=== PATIENT | male | born 1930 | race Caucasian/White ===

== ENCOUNTER 2019-07-24 15:25 | Observation (INO) ==
--- NOTE | 2019-07-24 16:03 | DR.CP ---
HPI Time Seen Time Seen by Provider: 07/24/19 16:02 PCP Primary Care Physician: KATHE IN [place] HPI Comment HPI Comment: PATIENT IS 89YR OLD MALE IN ER WITH PRECORDIAL CHEST PAIN TIMES 3 DAYS. PAIN 7/10 PRESSURE RADIATES TO THE BACK. NTG S/L TIMES 3 HELP PAIN. NO TRAUMA, COUGH, CONGESTION OR DYSURIA. Complaint Chief Complaint Doctor Comments: CHEST PAIN Chief Complaint:: PT STATED HE HAS BEEN HAVING CHEST PAIN FOR THE LAST 3 DAYS, NITRO SL TIMES 3 WERE GIVEN AND IT HELPED SOME. Reviewed Nurses Notes Review: Yes Source History Provided: Patient and Family Member Mode of Arrival Mode of Arrival: Ambulatory Timing Onset of Chief Complaint: 07/21/19 Came on: Suddenly Pain: Present Now Duration Duration: Constant Duration: Hours and Days Location Location of Chest Pain: Left and Chest Context Cardiac Risk Factors: None PE Risk Factors: None History of: None Prehospital Care: None Quality Quality: Pressure like Severity Severity: Moderate Modifying Factors Worsens: Exertion Impoves: Rest Associated Signs and Symptoms Associated Signs and Symptoms: Shortness of Breath PMH PMH Past Medical History: No Past Surgical History: Yes Past Surgical History Comment: LEFT EAR Family History History of Family Medical Conditions: No Social History Does patient currently use any type of tobacco product: No Have you used tobacco products in the last 12 months: No Type of Tobacco Use: None Does any household member use tobacco: No Alcohol Use: None Do you use any recreational Drugs:: No Lives With: Family Lives Where: Home infectious screening In the last 2 months have you had wt loss of >10#?: NO Have you had fever, night sweats or hemotysis?: No Have you traveled outside the country in the last 6 months?: Yes Details about traveling: PT LIVED IN [facility] [place] FOR 25 YEARS, JUST RETURNED LAST SEPTEMBER Isolation: Standard ROS Review of Systems Constitutional: See HPI, Weakness and Fatigue; negative Fever Eyes: No Symptoms Reported, See HPI and Other (MACULAR DEGENERATION WITH BLINDNESS.) ENTM: No Symptoms Reported, See HPI and Hearing Loss (LEFT EAR DEAFNESS.); ne gative Ear Pain, Nose Discharge, Nose Congestion and Throat Pain Respiratoy: See HPI and Short of Breath; negative Moist Cough and Wheezing Cardiovascular: See HPI and Chest Pain; negative Edema and Palpitations Gastrointestinal/Abdominal: No Symptoms Reported and See HPI; negative Diarrhea, Nausea and Vomiting Genitourinary: No Symptoms Reported and See HPI Neurological: No Symptoms Reported, See HPI and Headache; negative Weakness and Dizziness Musculoskeletal: No Symptoms Reported and See HPI Integumentary: No Symptoms Reported and See HPI; negative Change in Color, Rash and Juandice Hematologic/Lymphatic: No Symptoms Reported and See HPI; negative Easy Bleeding and Easy Bruising Endocrine: No Symptoms Reported and See HPI; negative Increased Thirst, Increased Urine and Decreased Appetite Psychiatric: No Symptoms Reported and See HPI All Other Systems: Reviewed and Negative PE Vitals Vitals: Temperature 97.9 F Pulse Rate [Left Brachial] 80 Pulse Rate 88 Respiratory Rate 16 Blood Pressure [Left Arm] 149/67 Blood Pressure 145/63 O2 Sat by Pulse Oximetry 99 General Limitations: No Limitations General Appearance: Alert and In No Apparent Distress Head Head Exam: Normal Inspection Eyes Eye exam: Other (MACULAR DEGERATION WITH BLINDNESS.) ENT ENT Exam: Normal Exam, Normal Oropharynx and Normal External Ear Exam; negative TM's Normal Bilaterally (LEFT EAR DEAFNESS.) Chest Chest Inspection: Normal Inspection and Symmetric Chest Wall Rise; negative Tenderness Respiratory Respiratory Exam: Normal Lung Sounds Bilat; negative Accessory Muscle Use, Chest Wall Tenderness and Respiratory Distress Respiratory Exam: Bilateral: Rhonchi and Lower: Rhonchi Cardiovascular Cardiovascular Exam: Regular Rate, Normal Rhythm and Normal Heart Sounds Pulse: Normal Edema: Normal Abdominal Exam Abdominal Exam: Normal Inspection, Normal Bowel Sounds and Soft; negative Tenderness Extremities Extremities Exam: Normal Inspection Back Back Exam: Normal Inspection Neurologic Neurological Exam: Alert and Oriented X3; negative Motor Sensory Deficit Psychiatric Psychiatric Exam: Normal Affect and Normal Mood Skin Skin Exam: Warm, Dry, Intact and Normal Color MDM Differential Diagnosis Differential Diagnosis: Chest Wall Pain, CHF, Costochondritis, Gastritis, Myocardial Infarction, Pericarditis, Pleuritis, Pneumonia and Pneumothorax COURSE Treatment Treatment: SEE ORDERS. Consultation Consultation Comments: DISCUSSED PATIENT WITH DR. ROSAS. HE WILL ADMIT PATIENT. Education/Counseling Education/Counseling: Patient Educated On: Diagnosis ROR Labs Reviewed Laboratory Results Reviewed?: Yes Result Diagrams: 07/26/19 04:17 07/26/19 04:17 Laboratory: WBC 6.2 X10^3/uL (3.6-10.0) 07/24/19 16:13 RBC 5.38 X10^6/uL (4.7-6.0) 07/24/19 16:13 Hgb 14.8 g/dL (13.5-18.0) 07/24/19 16:13 Hct 44.9 % (42.0-54.0) 07/24/19 16:13 MCV 83.4 fL (80.0-100.0) 07/24/19 16:13 MCH 27.4 pg (27.0-34.0) 07/24/19 16:13 MCHC 32.9 g/dL (33.0-35.0) L 07/24/19 16:13 RDW 15.6 % (11.6-16.5) 07/24/19 16:13 Plt Count 255 X10^3/uL (150.0-450.0) 07/24/19 16:13 MPV 6.7 fL (7.4-11.0) L 07/24/19 16:13 Neut % (Auto) 57.3 % (42.0-75.0) 07/24/19 16:13 Lymph % (Auto) 30.1 % (21.0-51.0) 07/24/19 16:13 [place] % (Auto) 10.9 % (0.0-13.0) 07/24/19 16:13 Eos % (Auto) 1.0 % (0.9-2.9) 07/24/19 16:13 Baso % (Auto) 0.7 % (0.2-1.0) 07/24/19 16:13 Neut # (Auto) 3.5 x10^3/uL (2.2-4.8) 07/24/19 16:13 Lymph # (Auto) 1.9 X10^3/uL (1.3-2.9) 07/24/19 16:13 [place] # (Auto) 0.7 x10^3/uL (0.3-0.8) 07/24/19 16:13 Eos # (Auto) 0.1 x10^3/uL (0.0-0.2) 07/24/19 16:13 Baso # (Auto) 0.0 X10^3/uL (0.0-0.1) 07/24/19 16:13 Absolute Nucleated RBC 0.2 /100WBC 07/24/19 16:13 PT 13.4 SECONDS (11.8-14.3) 07/24/19 16:13 INR Target Range - 07/24/19 16:13 INR 1.06 (0.8-1.3) 07/24/19 16:13 APTT 30.3 SECONDS (22.9-36.5) 07/24/19 16:13 PTT Comment - 07/24/19 16:13 Sodium 140 mmol/L (136-145) 07/24/19 16:13 Corrected Sodium 141 mmol/L (136-145) 07/24/19 16:13 Potassium 4.0 mmol/L (3.5-5.1) 07/24/19 16:13 Chloride 103 mmol/L (98-107) 07/24/19 16:13 Carbon Dioxide 31.3 mmol/L (21-32) 07/24/19 16:13 BUN 10 mg/dL (7-18) 07/24/19 16:13 Creatinine 1.40 mg/dL (0.70-1.30) H 07/24/19 16:13 Est GFR (MDRD) Af Amer > 60 (>60) 07/24/19 16:13 Est GFR (MDRD) Non-Af 51 (>60) L 07/24/19 16:13 Glucose 131 mg/dL (65-99) H 07/24/19 16:13 Calcium 9.5 mg/dL (8.5-10.1) 07/24/19 16:13 Corrected Calcium 10.1 mg/dL (8.5-10.1) 07/24/19 16:13 Magnesium 2.0 mg/dL (1.7-2.9) 07/24/19 16:13 Total Bilirubin 0.50 mg/dL (0.2-1.0) 07/24/19 16:13 AST 21 Units/L (15-37) 07/24/19 16:13 ALT 18 Units/L (12-78) 07/24/19 16:13 Alkaline Phosphatase 71 Units/L (46-116) 07/24/19 16:13 Creatine Kinase 112 Units/L (39-308) 07/24/19 16:13 CK-MB (CK-2) 4.0 ng/mL (0-4.0) 07/24/19 16:13 CK/CKMB % Calc 3.6 % (<4) 07/24/19 16:13 Troponin I < 0.02 ng/mL (0-1.5) 07/24/19 16:13 Total Protein 7.5 g/dL (6.4-8.2) 07/24/19 16:13 Albumin 3.3 g/dL (3.4-5.0) L 07/24/19 16:13 Globulin 4.2 g/dL (2.5-4.5) 07/24/19 16:13 Albumin/Globulin Ratio 0.8 Ratio (1.1-2.1) L 07/24/19 16:13 XRAY XRAY Interpreted by: Self (NEGATIVE ACUTE FINDINGS.) XRAY Findings: REPORT NOTED AND DISCUSSED WITH PATIENT. EKG Rate: 84 Page: Normal Rhythm: NSR and PACs Block: None Hypertrophy: None ST: Normal Opioid Opioid Risk Tool Age (Ian box if 16-45): No Total: 0 Total Score Risk Category: Low Risk Copyright: [facility] predicting aberrant behaviors Diagnosis Discharge Problem: Chest pain Qualifiers: Chest pain type: precordial pain Qualified Code(s): R07.2 - Precordial pain Instructions Instructions: Fall Prevention in the Home, Adult, [id number] Nonspecific Chest Pain, Ufkh-[id number] Dyslipidemia Food Choices for Gastroesophageal Reflux Disease, Adult, [id number] Hypertension, [id number] Gastroesophageal Reflux Disease, Adult, [id number] Forms: Patient Portal
[2019-07-24] MEDS ORDERED: ASPIRIN 81 MG CHEWTAB ONE (16:23)
[2019-07-24 16:26] LABS: BASOPHILS % (AUTO) 0.7 % (0.2-1.0); EOSINOPHILS # (AUTO) 0.1 x10^3/uL (0.0-0.2); HEMATOCRIT 44.9 % (42.0-54.0); HEMOGLOBIN 14.8 g/dL (13.5-18.0); LYMPHOCYTES # (AUTO) 1.9 X10^3/uL (1.3-2.9); LYMPHOCYTES % (AUTO) 30.1 % (21.0-51.0); MEAN CORPUSCULAR HEMOGLOBIN 27.4 pg (27.0-34.0); MEAN CORPUSCULAR HGB CONC 32.9 g/dL (33.0-35.0); MEAN CORPUSCULAR VOLUME 83.4 fL (80.0-100.0); MEAN PLATELET VOLUME 6.7 fL (7.4-11.0); MONOCYTES # (AUTO) 0.7 x10^3/uL (0.3-0.8); MONOCYTES % (AUTO) 10.9 % (0.0-13.0); NEUTROPHILS # (AUTO) 3.5 x10^3/uL (2.2-4.8); NEUTROPHILS % (AUTO) 57.3 % (42.0-75.0); PLATELET COUNT 255 X10^3/uL (150.0-450.0); RED BLOOD COUNT 5.38 X10^6/uL (4.7-6.0); RED CELL DISTRIBUTION WIDTH 15.6 % (11.6-16.5); WHITE BLOOD COUNT 6.2 X10^3/uL (3.6-10.0)
[2019-07-24] MEDS: ASPIRIN 81 MG CHEWTAB PO SCH (16:27)
--- NOTE | 2019-07-24 16:45 | RAD ---
HISTORY:Chest painStudy: Single view chestComparison:NoneFindings:Lungs are hyperinflated. No infiltrate, effusion, or pneumothorax identified .Cardiac and mediastinal contours are within normal limits .The soft tissues are intact .IMPRESSION:1. No acute cardiopulmonary abnormality.Electronically signed by: CHALINO CHRISTY (Jul 24, 2019 16:44:50)
[2019-07-24 16:48] LABS: BLOOD UREA NITROGEN 10 mg/dL (7-18); CALCIUM 9.5 mg/dL (8.5-10.1); CARBON DIOXIDE 31.3 mmol/L (21-32); CHLORIDE 103 mmol/L (98-107); COR NA(FOR HYPERGLY) 141 mmol/L (136-145); SODIUM 140 mmol/L (136-145); TROPONIN I < 0.02 ng/mL (0-1.5); eGFR NON BLACK RACES 51 (>60)
[2019-07-24 16:52] LABS: ALANINE AMINOTRANSFERASE 18 Units/L (12-78); ALBUMIN 3.3 g/dL (3.4-5.0); ALKALINE PHOSPHATASE 71 Units/L (46-116); ASPARTATE AMINO TRANSFERASE 21 Units/L (15-37); CKMB % 3.6 % (<4); COR CA(FOR HYPOALB) 10.1 mg/dL (8.5-10.1); CREATINE KINASE 112 Units/L (39-308); TOTAL PROTEIN 7.5 g/dL (6.4-8.2)
[2019-07-24] MEDS ORDERED: NITROSTAT SL PRN (19:45)
[2019-07-24] MEDS: PEPCID 20 MG IV PREMIX* 20 MG/50 ML BAG IV SCH (20:50)
[2019-07-24] MEDS: NS 1000 ML 1,000 ML IV SCH (20:50)
[2019-07-24 20:55] VITALS: BMI 20.7
[2019-07-24 23:30] LABS: CKMB % 2.5 % (<4); CREATINE KINASE 113 Units/L (39-308); CREATINE KINASE MB 2.8 ng/mL (0-4.0); TROPONIN I < 0.02 ng/mL (0-1.5)
[2019-07-25 00:18] LABS: BILIRUBIN,URINE NEGATIVE (NEGATIVE); BLOOD/HEMOGLOBIN,URINE NEGATIVE (NEGATIVE); GLUCOSE, URINE NEGATIVE (NEGATIVE); KETONES,URINE NEGATIVE (NEGATIVE); LEUKOCYTE ESTERASE ,URINE NEGATIVE (NEGATIVE); NITRITES,URINE NEGATIVE (NEGATIVE); PH,URINE 6.5 (5.0 - 8.0); PROTEIN,URINE NEGATIVE (NEGATIVE); UROBILINOGEN,URINE NORMAL (NORMAL)
[2019-07-25 00:25] LABS: APPEARANCE,URINE CLEAR (CLEAR); COLOR,URINE YELLOW (YELLOW)
[2019-07-25 06:12] LABS: BASOPHILS % (AUTO) 0.5 % (0.2-1.0); EOSINOPHILS # (AUTO) 0.1 x10^3/uL (0.0-0.2); EOSINOPHILS % (AUTO) 1.6 % (0.9-2.9); HEMATOCRIT 40.4 % (42.0-54.0); HEMOGLOBIN 13.6 g/dL (13.5-18.0); LYMPHOCYTES # (AUTO) 1.9 X10^3/uL (1.3-2.9); LYMPHOCYTES % (AUTO) 32.5 % (21.0-51.0); MEAN CORPUSCULAR HEMOGLOBIN 27.6 pg (27.0-34.0); MEAN CORPUSCULAR HGB CONC 33.6 g/dL (33.0-35.0); MEAN CORPUSCULAR VOLUME 82.3 fL (80.0-100.0); MEAN PLATELET VOLUME 6.9 fL (7.4-11.0); MONOCYTES # (AUTO) 0.7 x10^3/uL (0.3-0.8); MONOCYTES % (AUTO) 11.5 % (0.0-13.0); NEUTROPHILS # (AUTO) 3.2 x10^3/uL (2.2-4.8); NEUTROPHILS % (AUTO) 53.9 % (42.0-75.0); PLATELET COUNT 215 X10^3/uL (150.0-450.0); RED BLOOD COUNT 4.91 X10^6/uL (4.7-6.0); RED CELL DISTRIBUTION WIDTH 15.4 % (11.6-16.5)
[2019-07-25 06:42] LABS: ALANINE AMINOTRANSFERASE 16 Units/L (12-78); ALBUMIN 2.8 g/dL (3.4-5.0); ALKALINE PHOSPHATASE 60 Units/L (46-116); ASPARTATE AMINO TRANSFERASE 21 Units/L (15-37); BLOOD UREA NITROGEN 9 mg/dL (7-18); CALCIUM 8.9 mg/dL (8.5-10.1); CARBON DIOXIDE 25.2 mmol/L (21-32); CHLORIDE 106 mmol/L (98-107); CHOLESTEROL 139 mg/dL (0-200); CKMB % 2.2 % (<4); COR CA(FOR HYPOALB) 9.9 mg/dL (8.5-10.1); CREATINE KINASE 127 Units/L (39-308); CREATINE KINASE MB 2.8 ng/mL (0-4.0); CREATININE 1.28 mg/dL (0.70-1.30); HDL CHOLESTEROL 23 mg/dL (40-60); MAGNESIUM 1.9 mg/dL (1.7-2.9); SODIUM 141 mmol/L (136-145); TOTAL PROTEIN 6.6 g/dL (6.4-8.2); TRIGLYCERIDES 100 mg/dL (0-150); TROPONIN I < 0.02 ng/mL (0-1.5); eGFR NON BLACK RACES 56 (>60)
[2019-07-25] MEDS ORDERED: NITROSTAT SL PRN (08:11)
[2019-07-25] MEDS ORDERED: ASPIRIN PO SCH (09:00)
[2019-07-25] MEDS: PEPCID 20 MG IV PREMIX* 20 MG/50 ML BAG IV SCH ×2 (09:51→21:38)
[2019-07-25] MEDS: NS 1000 ML 1,000 ML IV SCH ×2 (09:52→21:40)
[2019-07-25] MEDS: ASPIRIN 81 MG CHEWTAB PO SCH (09:52)
[2019-07-25 12:40] LABS: CKMB % 1.6 % (<4); CREATINE KINASE 115 Units/L (39-308); CREATINE KINASE MB 1.8 ng/mL (0-4.0); TROPONIN I < 0.02 ng/mL (0-1.5)
[2019-07-25] MEDS: LEVSIN/MAALOX/LIDOC VISC PO SCH ×2 (16:31→21:39)
--- NOTE | 2019-07-25 17:05 | DR.H&P ---
H&P - History & Physical for Day of: H&P Date: 07/24/19 - Chief Complaint Chief Complaint: CHEST PAIN - History of Present Illness History of Present Illness: PT IS 89 WM ER ADMISSION AFTER PRESENTING WITH CO CHEST PAIN. PT REPORTS HE WAS GIVEN NTG SL THAT HELPED WITH PAIN. PT DENIES ANY STENTING, ANGIOPLASTY OR BYPASS. PT STATES HE IS SEEN BY THE [facility] FOR MEDICAL CARE. PT REPORTS INCREASED GAS, BURPING. DENIES ANY N/V/D - Past Medical History Past Medical History: Angina, Arthritis, Hypertension - Past Surgical History Surgical History: Other - Social History Does patient currently use any type of tobacco product: No Have you used tobacco products in the last 12 months: No Type of Tobacco Use: None Does any household member use tobacco: No Alcohol Use: None Drug Use: None - Medications Home Medications: No Known Drug Allergies Allergy (Verified 07/24/19 20:57) CONTINUE taking the following medications nitroglycerin 0.4 mg SUBLINGUAL PRN PRN 07/24/19 [History] - Review of Systems Constitutional: No Symptoms Reported Eyes: No Symptoms Reported ENT: No Symptoms Reported Respiratory: No Symptoms Reported Cardiovascular: Chest Pain Gastrointestinal: Other (GAS) Musculoskeletal: No Symptoms Reported Skin: No Symptoms Reported Neurological: Weakness (MILD GENERALIZED WEAKNESS) - Physical Exam Vital Signs: Temperature 97.9 F Pulse Rate [Right Brachial] 74 Pulse Rate [Left Brachial] 67 Pulse Rate 88 Respiratory Rate 20 Blood Pressure [Right Arm] 146/70 Blood Pressure [Left Arm] 149/67 Blood Pressure 145/63 O2 Sat by Pulse Oximetry 95 Oriented: Normal Eyes: Normal Ear: Normal Nose: Normal Throat: Dry Respiratory: RLL Diminished, LLL Diminished Cardiovascular: Normal. negative: Edema : Normal Auscultation: Bowel Sounds: Increased Tenderness: Epigastric, Mild Skin: Decreased [place] Musculoskeletal: Normal Mood Description: Calm Speech Pattern: Clear, Appropriate - Assessment/Plan (1) Chest pain Status: Acute Plan: ADMIT, SERIAL CE , EKG. CXR ON ADMISSION. PROTONIX IV, PAIN AND NAUSEA CONTROL. FLP, VERIFY HOME MEDICATION (2) Hypertension Status: Acute (3) Hyperlipidemia Status: Acute - Allergies Allergies/Adverse Reactions: Allergies Allergy/AdvReac Type Severity Reaction Status Date / Time No Known Drug Allergies Allergy Verified 07/24/19 20:57
--- NOTE | 2019-07-25 17:10 | PCM.PROG ---
Progress Note - Progress Note for Day of Date of Exam: 07/25/19 - Subjective Subjective: PT IS 89 EM ER ADMISSION WITH CHEST PAIN. PT HAD SERIAL CE AND EKG. PT DENIES ANY PREVIOUS CARDIAC STENTING OR BYPASS. PT CE NORMAL. PT CO INCREASED GAS AND BURPING. PT STARTED ON PPI, ADDED GI COCKTAIL. PLAN TO REPEAT CE. PT DENIES ANY CHEST PAIN OR SOB SINCE ADMISSION. - Past Medical Family Social History Past Med/Fam/Surg Hx: No changes since H&P Allergies: Allergies No Known Drug Allergies Allergy (Verified 07/24/19 20:57) - Review of Systems ROS: No change since H&P - Vital Signs and I&O's Vital Signs: Temperature 97.9 F Pulse Rate [Right Brachial] 74 Pulse Rate [Left Brachial] 67 Pulse Rate 88 Respiratory Rate 20 Blood Pressure [Right Arm] 146/70 Blood Pressure [Left Arm] 149/67 Blood Pressure 145/63 O2 Sat by Pulse Oximetry 95 Intake and Output: Intake & Output 07/23/19 07/24/19 07/25/19 07/26/19 11:59 11:59 11:59 11:59 Intake Total 334 / 334 1313 / 1313 Output Total 200 / 200 125 / 125 Balance 134 / 134 1188 / 1188 - Physical Exam Oriented: Normal Eyes: Normal Ear: Normal Nose: Normal Throat: Dry Cardiovascular: Normal. negative: Edema : Normal Auscultation: Bowel Sounds: Increased Tenderness: Epigastric, Mild Skin: Decreased [place]urgur Musculoskeletal: Normal Mood Description: Calm Speech Pattern: Clear, Appropriate - Laboratory and Diagnostics Result Diagrams: 07/25/19 05:18 07/25/19 05:18 Labs: Laboratory WBC 6.0 X10^3/uL (3.6-10.0) 07/25/19 05:18 RBC 4.91 X10^6/uL (4.7-6.0) 07/25/19 05:18 Hgb 13.6 g/dL (13.5-18.0) 07/25/19 05:18 Hct 40.4 % (42.0-54.0) L 07/25/19 05:18 MCV 82.3 fL (80.0-100.0) 07/25/19 05:18 MCH 27.6 pg (27.0-34.0) 07/25/19 05:18 MCHC 33.6 g/dL (33.0-35.0) 07/25/19 05:18 RDW 15.4 % (11.6-16.5) 07/25/19 05:18 Plt Count 215 X10^3/uL (150.0-450.0) 07/25/19 05:18 MPV 6.9 fL (7.4-11.0) L 07/25/19 05:18 Neut % (Auto) 53.9 % (42.0-75.0) 07/25/19 05:18 Lymph % (Auto) 32.5 % (21.0-51.0) 07/25/19 05:18 [place] % (Auto) 11.5 % (0.0-13.0) 07/25/19 05:18 Eos % (Auto) 1.6 % (0.9-2.9) 07/25/19 05:18 Baso % (Auto) 0.5 % (0.2-1.0) 07/25/19 05:18 Neut # (Auto) 3.2 x10^3/uL (2.2-4.8) 07/25/19 05:18 Lymph # (Auto) 1.9 X10^3/uL (1.3-2.9) 07/25/19 05:18 [place] # (Auto) 0.7 x10^3/uL (0.3-0.8) 07/25/19 05:18 Eos # (Auto) 0.1 x10^3/uL (0.0-0.2) 07/25/19 05:18 Baso # (Auto) 0.0 X10^3/uL (0.0-0.1) 07/25/19 05:18 Absolute Nucleated RBC 0.1 /100WBC 07/25/19 05:18 PT 13.4 SECONDS (11.8-14.3) 07/24/19 16:13 INR Target Range - 07/24/19 16:13 INR 1.06 (0.8-1.3) 07/24/19 16:13 APTT 30.3 SECONDS (22.9-36.5) 07/24/19 16:13 PTT Comment - 07/24/19 16:13 Sodium 141 mmol/L (136-145) 07/25/19 05:18 Corrected Sodium TNP 07/25/19 05:18 Potassium 3.8 mmol/L (3.5-5.1) 07/25/19 05:18 Chloride 106 mmol/L (98-107) 07/25/19 05:18 Carbon Dioxide 25.2 mmol/L (21-32) 07/25/19 05:18 BUN 9 mg/dL (7-18) 07/25/19 05:18 Creatinine 1.28 mg/dL (0.70-1.30) 07/25/19 05:18 Est GFR (MDRD) Af Amer > 60 (>60) 07/25/19 05:18 Est GFR (MDRD) Non-Af 56 (>60) L 07/25/19 05:18 Glucose 97 mg/dL (65-99) 07/25/19 05:18 Calcium 8.9 mg/dL (8.5-10.1) 07/25/19 05:18 Corrected Calcium 9.9 mg/dL (8.5-10.1) 07/25/19 05:18 Magnesium 1.9 mg/dL (1.7-2.9) 07/25/19 05:18 Total Bilirubin 0.50 mg/dL (0.2-1.0) 07/25/19 05:18 AST 21 Units/L (15-37) 07/25/19 05:18 ALT 16 Units/L (12-78) 07/25/19 05:18 Alkaline Phosphatase 60 Units/L (46-116) 07/25/19 05:18 Creatine Kinase 115 Units/L (39-308) 07/25/19 12:07 CK-MB (CK-2) 1.8 ng/mL (0-4.0) 07/25/19 12:07 CK/CKMB % Calc 1.6 % (<4) 07/25/19 12:07 Troponin I < 0.02 ng/mL (0-1.5) 07/25/19 12:07 Total Protein 6.6 g/dL (6.4-8.2) 07/25/19 05:18 Albumin 2.8 g/dL (3.4-5.0) L 07/25/19 05:18 Globulin 3.8 g/dL (2.5-4.5) 07/25/19 05:18 Albumin/Globulin Ratio 0.7 Ratio (1.1-2.1) L 07/25/19 05:18 Triglycerides 100 mg/dL (0-150) 07/25/19 05:18 Cholesterol 139 mg/dL (0-200) 07/25/19 05:18 LDL Cholesterol, Calc 96 mg/dL (0-100) 07/25/19 05:18 HDL Cholesterol 23 mg/dL (40-60) L 07/25/19 05:18 Cholesterol/HDL Ratio 6.0 (0.0-5.0) H 07/25/19 05:18 Specimen Type Clean catch urine 07/24/19 23:59 Urine Color Yellow (YELLOW) 07/24/19 23:59 Urine Appearance Clear (CLEAR) 07/24/19 23:59 Urine pH 6.5 (5.0 - 8.0) 07/24/19 23:59 Ur Specific [place] 1.015 (1.000-1.030) 07/24/19 23:59 Urine Protein Negative (NEGATIVE) 07/24/19 23:59 Urine Glucose (UA) Negative (NEGATIVE) 07/24/19 23:59 Urine Ketones Negative (NEGATIVE) 07/24/19 23:59 Urine Occult Blood Negative (NEGATIVE) 07/24/19 23:59 Urine Nitrite Negative (NEGATIVE) 07/24/19 23:59 Urine Bilirubin Negative (NEGATIVE) 07/24/19 23:59 Urine Urobilinogen Normal (NORMAL) 07/24/19 23:59 Ur Leukocyte Esterase Negative (NEGATIVE) 07/24/19 23:59 - Plan (1) Chest pain Status: Acute Plan: SERIAL CE , EKG. CXR ON ADMISSION. PROTONIX IV, PAIN AND NAUSEA CONTROL. FLP, VERIFY HOME MEDICATION (2) Hypertension Status: Acute (3) Hyperlipidemia Status: Acute (4) GERD (gastroesophageal reflux disease) Status: Acute
[2019-07-26 05:30] LABS: BASOPHILS % (AUTO) 0.4 % (0.2-1.0); EOSINOPHILS # (AUTO) 0.1 x10^3/uL (0.0-0.2); EOSINOPHILS % (AUTO) 0.9 % (0.9-2.9); HEMATOCRIT 40.9 % (42.0-54.0); HEMOGLOBIN 13.6 g/dL (13.5-18.0); LYMPHOCYTES # (AUTO) 1.9 X10^3/uL (1.3-2.9); LYMPHOCYTES % (AUTO) 30.2 % (21.0-51.0); MEAN CORPUSCULAR HEMOGLOBIN 27.6 pg (27.0-34.0); MEAN CORPUSCULAR HGB CONC 33.2 g/dL (33.0-35.0); MEAN CORPUSCULAR VOLUME 83.1 fL (80.0-100.0); MEAN PLATELET VOLUME 7.1 fL (7.4-11.0); MONOCYTES # (AUTO) 0.8 x10^3/uL (0.3-0.8); MONOCYTES % (AUTO) 12.4 % (0.0-13.0); NEUTROPHILS # (AUTO) 3.5 x10^3/uL (2.2-4.8); NEUTROPHILS % (AUTO) 56.1 % (42.0-75.0); PLATELET COUNT 238 X10^3/uL (150.0-450.0); RED BLOOD COUNT 4.93 X10^6/uL (4.7-6.0); RED CELL DISTRIBUTION WIDTH 15.5 % (11.6-16.5); WHITE BLOOD COUNT 6.2 X10^3/uL (3.6-10.0)
[2019-07-26 05:39] LABS: ALANINE AMINOTRANSFERASE 15 Units/L (12-78); ALBUMIN 2.8 g/dL (3.4-5.0); ALKALINE PHOSPHATASE 62 Units/L (46-116); ASPARTATE AMINO TRANSFERASE 16 Units/L (15-37); BLOOD UREA NITROGEN 9 mg/dL (7-18); CALCIUM 8.5 mg/dL (8.5-10.1); CHLORIDE 108 mmol/L (98-107); COR CA(FOR HYPOALB) 9.5 mg/dL (8.5-10.1); CREATININE 1.26 mg/dL (0.70-1.30); SODIUM 141 mmol/L (136-145); TOTAL PROTEIN 6.4 g/dL (6.4-8.2); eGFR NON BLACK RACES 57 (>60)
[2019-07-26] MEDS: NS 1000 ML 1,000 ML IV SCH (09:40)
[2019-07-26] MEDS: PEPCID 20 MG IV PREMIX* 20 MG/50 ML BAG IV SCH (09:41)
[2019-07-26] MEDS: ASPIRIN 81 MG CHEWTAB PO SCH (09:41)
[2019-07-26] MEDS: LEVSIN/MAALOX/LIDOC VISC PO SCH (09:41)
[2019-07-26 12:03] VITALS: BP 126/67
== END 2019-07-26 14:45 | disposition home or self-care (01) ==
LOC: MED/SURG 15:41 → ER 15:41 → MED/SURG 19:18
PROVIDERS: ADMIT Internal Medicine; ATTEND Internal Medicine
CPT/HCPCS: 36415; 71010; 71045; 80053; 80061; 81003; 82550; 82553; 83735; 84484; 85025; 85610; 85730; 93005; 94760; 96360; 96361; 96365; 96374; 97161; 99284; A4222; S0028; G0378; J7030

== ENCOUNTER 2020-05-15 13:45 | Observation (INO) ==
[2020-05-15 13:49] VITALS: BMI 19.3
--- NOTE | 2020-05-15 14:09 | DR.GENAD ---
HPI Time Seen Time Seen by Provider: 05/15/20 14:05 PCP Primary Care Physician: KATHE Complaint/Symptoms Chief Complaint:: DAUGHTER STATES PT. HAS HAD A DRY COUGH AND A NON EXISTENT APPETITE FOR A FEW WEEKS. SHE STATES PT'S MOBILITY HAS DECREASED AND ENERGY LEVEL. PT. C/O SHORTNESS OF BREATH. DAUGHTER STATES PT'S B/P AT HOME [employer]PER[employer] WAS LOW. SHE SAYS THAT HE SOMETIMES SEEMS CONFUSED. COVID-19 Coronavirus risk:travel/contact w/high risk person: No Has patient experienced Coronavirus symptoms: Yes Coronavirus symptoms experienced: Coughing and Shortness of Breath Source History Provided: Patient and Family Member Mode of Arrival Mode of Arrival: Wheelchair Timing Onset of Chief Complaint: 05/01/20 PMH PMH Past Medical History: No Past Medical History: Angina, Arthritis and Hypertension Past Surgical History: Yes Surgical History: Other Past Surgical History Comment: LEFT EAR Family History History of Family Medical Conditions: No Social History Does patient currently use any type of tobacco product: No Have you used tobacco products in the last 12 months: No Type of Tobacco Use: Cigarettes Does any household member use tobacco: No Alcohol Use: None Do you use any recreational Drugs:: No Lives With: Family Lives Where: Home Travel Risk Coronavirus risk:travel/contact w/high risk person: No Has patient experienced Coronavirus symptoms: Yes Coronavirus symptoms experienced: Coughing and Shortness of Breath Infectious screening In the last 2 months have you had wt loss of >10#?: NO Have you had fever, night sweats or hemotysis?: No Have you traveled outside the country in the last 6 months?: No Isolation: Droplet ROS Review of Systems Constitutional: No Symptoms Reported and See HPI Eyes: No Symptoms Reported and See HPI ENTM: No Symptoms Reported and See HPI Respiratoy: No Symptoms Reported and See HPI Cardiovascular: No Symptoms Reported and See HPI Gastrointestinal/Abdominal: No Symptoms Reported and See HPI Genitourinary: No Symptoms Reported and See HPI Neurological: No Symptoms Reported and See HPI Musculoskeletal: No Symptoms Reported and See HPI Integumentary: No Symptoms Reported and See HPI Hematologic/Lymphatic: No Symptoms Reported and See HPI Endocrine: No Symptoms Reported and See HPI Psychiatric: No Symptoms Reported and See HPI All Other Systems: Reviewed and Negative PE Vital Signs Vitals: Temperature 98.0 F Pulse Rate 90 Respiratory Rate 22 Blood Pressure [Right Arm] 126/67 Blood Pressure 130/56 O2 Sat by Pulse Oximetry 96 General Limitations: No Limitations General Appearance: Alert and In No Apparent Distress Head Head Exam: Normal Inspection Eyes Eye exam: Normal Appearance ENT ENT Exam: Normal Exam External Ear Exam: Normal External Inspection TM/Canal Exam: Bilateral: Normal Nose Exam: Normal Nose Exam Mouth Exam: Normal Inspection Throat Exam: Normal Inspection Neck Neck Exam: Normal Inspection Chest Chest Inspection: Normal Inspection Respiratory Respiratory Exam: Normal Lung Sounds Bilat Respiratory Exam: Bilateral: Clear to Auscultation Cardiovascular Cardiovascular Exam: Regular Rate and Normal Rhythm Abdominal Exam Abdominal Exam: Normal Inspection, Normal Bowel Sounds and Soft Extremities Extremities Exam: Normal Inspection Back Back Exam: Normal Inspection Neurologic Neurological Exam: Alert and Oriented X3 Psychiatric Psychiatric Exam: Normal Affect and Normal Mood Skin Skin Exam: Warm, Dry, Intact and Normal Color COURSE Treatment Treatment: SEE ORDERS. ROR Labs Reviewed Laboratory Results Reviewed?: Yes Result Diagrams: 05/15/20 14:23 05/15/20 14:23 Laboratory: WBC 5.5 X10^3/uL (3.6-10.0) 05/15/20 14:23 RBC 4.89 X10^6/uL (4.7-6.0) 05/15/20 14:23 Hgb 12.9 g/dL (13.5-18.0) L 05/15/20 14:23 Hct 39.8 % (42.0-54.0) L 05/15/20 14:23 MCV 81.4 fL (80.0-100.0) 05/15/20 14:23 MCH 26.4 pg (27.0-34.0) L 05/15/20 14:23 MCHC 32.5 g/dL (33.0-35.0) L 05/15/20 14:23 RDW 15.8 % (11.6-16.5) 05/15/20 14:23 Plt Count 261 X10^3/uL (150.0-450.0) 05/15/20 14:23 MPV 7.0 fL (7.4-11.0) L 05/15/20 14:23 Neut % (Auto) 58.7 % (42.0-75.0) 05/15/20 14:23 Lymph % (Auto) 24.8 % (21.0-51.0) 05/15/20 14:23 [place] % (Auto) 15.2 % (0.0-13.0) H 05/15/20 14:23 Eos % (Auto) 0.8 % (0.9-2.9) L 05/15/20 14:23 Baso % (Auto) 0.5 % (0.2-1.0) 05/15/20 14:23 Neut # (Auto) 3.2 x10^3/uL (2.2-4.8) 05/15/20 14:23 Lymph # (Auto) 1.4 X10^3/uL (1.3-2.9) 05/15/20 14:23 [place] # (Auto) 0.8 x10^3/uL (0.3-0.8) 05/15/20 14:23 Eos # (Auto) 0.0 x10^3/uL (0.0-0.2) 05/15/20 14:23 Baso # (Auto) 0.0 X10^3/uL (0.0-0.1) 05/15/20 14:23 Absolute Nucleated RBC 0.0 /100WBC 05/15/20 14:23 Sodium 136 mmol/L (136-145) 05/15/20 14:23 Corrected Sodium TNP 05/15/20 14:23 Potassium 4.1 mmol/L (3.5-5.1) 05/15/20 14:23 Chloride 100 mmol/L (98-107) 05/15/20 14:23 Carbon Dioxide 29.6 mmol/L (21-32) 05/15/20 14:23 BUN 15 mg/dL (7-18) 05/15/20 14:23 Creatinine 1.48 mg/dL (0.70-1.30) H 05/15/20 14:23 Est GFR (MDRD) Af Amer 58 (>60) L 05/15/20 14:23 Est GFR (MDRD) Non-Af 48 (>60) L 05/15/20 14:23 Glucose 99 mg/dL (65-99) 05/15/20 14:23 Calcium 10.1 mg/dL (8.5-10.1) 05/15/20 14:23 Corrected Calcium 11.1 mg/dL (8.5-10.1) H 05/15/20 14:23 Total Bilirubin 0.40 mg/dL (0.2-1.0) 05/15/20 14:23 AST 24 Units/L (15-37) 05/15/20 14:23 ALT 11 Units/L (12-78) L 05/15/20 14:23 Alkaline Phosphatase 65 Units/L (46-116) 05/15/20 14:23 Creatine Kinase 28 Units/L (39-308) L 05/15/20 14:23 CK-MB (CK-2) < 1.0 ng/mL (0-4.0) 05/15/20 14:23 CK/CKMB % Calc 3.6 % (<4) 05/15/20 14:23 Troponin I < 0.02 ng/mL (0-1.5) 05/15/20 14:23 Total Protein 7.2 g/dL (6.4-8.2) 05/15/20 14:23 Albumin 2.7 g/dL (3.4-5.0) L 05/15/20 14:23 Globulin 4.5 g/dL (2.5-4.5) 05/15/20 14:23 Albumin/Globulin Ratio 0.6 Ratio (1.1-2.1) L 05/15/20 14:23 Specimen Type Clean catch urine 05/15/20 14:16 Urine Color Yellow (YELLOW) 05/15/20 14:16 Urine Appearance Slightly hazy (CLEAR) 05/15/20 14:16 Urine pH 6.5 (5.0 - 8.0) 05/15/20 14:16 Ur Specific [place] 1.015 (1.000-1.030) 05/15/20 14:16 Urine Protein 1+ (NEGATIVE) 05/15/20 14:16 Urine Glucose (UA) Negative (NEGATIVE) 05/15/20 14:16 Urine Ketones Negative (NEGATIVE) 05/15/20 14:16 Urine Occult Blood 1+ (NEGATIVE) 05/15/20 14:16 Urine Nitrite Negative (NEGATIVE) 05/15/20 14:16 Urine Bilirubin Negative (NEGATIVE) 05/15/20 14:16 Urine Urobilinogen 1+ (NORMAL) 05/15/20 14:16 Ur Leukocyte Esterase 1+ (NEGATIVE) 05/15/20 14:16 Urine RBC 3-5 /HPF (0-3) A 05/15/20 14:16 Urine WBC 0-2 /HPF (0-5) 05/15/20 14:16 Ur Squamous Epith Cells Rare /HPF (NEGATIVE) 05/15/20 14:16 Calcium Oxalate Crystal Few /HPF (NEGATIVE) 05/15/20 14:16 Amorphous Sediment 1+ /HPF (NEGATIVE) 05/15/20 14:16 Urine Bacteria 1+ /HPF (NEGATIVE) 05/15/20 14:16 Ur Culture Indicated? No/not indicated 05/15/20 14:16 SARS-CoV-2 (PCR) Negative (NEGATIVE) 05/15/20 16:26 XRAY XRAY Interpreted by: Radiologist (REPORT NOTED AND DISCUSSED WITH PATIENT.) and Self Opioid Opioid Risk Tool Age (Ian box if 16-45): No History of Preadolescent Sexual Abuse: No Total: 0 Total Score Risk Category: Low Risk Copyright: [facility] predicting aberrant behaviors Diagnosis Discharge Problem: Ataxia, SOB (shortness of breath), Bronchitis, Generalized weakness AMS (altered mental status) Qualifiers: Altered mental status type: unspecified Qualified Code(s): R41.82 - Altered mental status, unspecified Instructions Forms: Precautions for COVID19 Patient Portal Social Distancing
[2020-05-15 14:33] LABS: BILIRUBIN,URINE NEGATIVE (NEGATIVE); BLOOD/HEMOGLOBIN,URINE 1+ (NEGATIVE); GLUCOSE, URINE NEGATIVE (NEGATIVE); KETONES,URINE NEGATIVE (NEGATIVE); LEUKOCYTE ESTERASE ,URINE 1+ (NEGATIVE); NITRITES,URINE NEGATIVE (NEGATIVE); PH,URINE 6.5 (5.0 - 8.0); PROTEIN,URINE 1+ (NEGATIVE); UROBILINOGEN,URINE 1+ (NORMAL)
[2020-05-15 14:33] LABS: BASOPHILS % (AUTO) 0.5 % (0.2-1.0); EOSINOPHILS % (AUTO) 0.8 % (0.9-2.9); HEMATOCRIT 39.8 % (42.0-54.0); HEMOGLOBIN 12.9 g/dL (13.5-18.0); LYMPHOCYTES # (AUTO) 1.4 X10^3/uL (1.3-2.9); LYMPHOCYTES % (AUTO) 24.8 % (21.0-51.0); MEAN CORPUSCULAR HEMOGLOBIN 26.4 pg (27.0-34.0); MEAN CORPUSCULAR HGB CONC 32.5 g/dL (33.0-35.0); MEAN CORPUSCULAR VOLUME 81.4 fL (80.0-100.0); MONOCYTES # (AUTO) 0.8 x10^3/uL (0.3-0.8); MONOCYTES % (AUTO) 15.2 % (0.0-13.0); NEUTROPHILS # (AUTO) 3.2 x10^3/uL (2.2-4.8); NEUTROPHILS % (AUTO) 58.7 % (42.0-75.0); PLATELET COUNT 261 X10^3/uL (150.0-450.0); RED BLOOD COUNT 4.89 X10^6/uL (4.7-6.0); RED CELL DISTRIBUTION WIDTH 15.8 % (11.6-16.5); WHITE BLOOD COUNT 5.5 X10^3/uL (3.6-10.0)
[2020-05-15 14:46] LABS: AMORPHOUS SEDIMENT,UR 1+ /HPF (NEGATIVE); APPEARANCE,URINE SLIGHTLY HAZY (CLEAR); BACTERIA,URINE 1+ /HPF (NEGATIVE); CALCIUM OXALATE CRYSTALS,UR FEW /HPF (NEGATIVE); COLOR,URINE YELLOW (YELLOW); SQUAMOUS EPITHELIAL CELL,UR RARE /HPF (NEGATIVE)
--- NOTE | 2020-05-15 14:46 | RAD ---
HISTORYSOB, COUGHSTUDYCHEST x-ray, 1 VIEWCOMPARISONX-ray 07/24/2019FINDINGSLungs are hyperinflated consistent with COPD. Persistent left retrocardiac opacity is seen which may be due to atelectasis. Heart is normal in size. Tiny left pleural effusion is not excluded. No pneumothorax is seen.IMPRESSIONProbable COPD.Probable persistent atelectasis at the left lung base.Electronically signed by: Gurdeep Guo (May 15, 2020 14:44:05)
--- NOTE | 2020-05-15 14:47 | CT ---
HISTORYAMS, DECREASED MOTILITYSTUDYBRAIN W/O CONCOMPARISONNone.TECHNIQUEMultiple axial images of the head were performed from the skullbase to the vertex using standard departmental protocol. Sagittal and coronal reformatted images were performed. Dose reduction techniques including Automated Exposure Control (AEC) and adjustment of mA and kV were utilized.FINDINGSThere is mild brain volume loss. The lateral ventricles and basilar cisterns are patent. There is left basal ganglia chronic appearing infarct with ex vacuo dilatation of the adjacent left lateral ventricle. Chronic right basal ganglia lacunar infarct. Mild low attenuation change in the subcortical and deep supratentorial white matter. Left mastoid air cell fluid with likely partial mastoidectomy. The right mastoid air cells and paranasal sinuses appear clear.IMPRESSIONNo acute intracranial abnormality. 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 Postsurgical change to the left temporal bone.Electronically signed by: Rolando Gann (May 15, 2020 14:45:40)
[2020-05-15 14:48] LABS: BLOOD UREA NITROGEN 15 mg/dL (7-18); CALCIUM 10.1 mg/dL (8.5-10.1); CARBON DIOXIDE 29.6 mmol/L (21-32); CHLORIDE 100 mmol/L (98-107); CREATININE 1.48 mg/dL (0.70-1.30); SODIUM 136 mmol/L (136-145); TROPONIN I < 0.02 ng/mL (0-1.5); eGFR NON BLACK RACES 48 (>60)
[2020-05-15 14:53] LABS: ALANINE AMINOTRANSFERASE 11 Units/L (12-78); ALBUMIN 2.7 g/dL (3.4-5.0); ALKALINE PHOSPHATASE 65 Units/L (46-116); ASPARTATE AMINO TRANSFERASE 24 Units/L (15-37); CKMB % 3.6 % (<4); COR CA(FOR HYPOALB) 11.1 mg/dL (8.5-10.1); CREATINE KINASE 28 Units/L (39-308); CREATINE KINASE MB < 1.0 ng/mL (0-4.0); TOTAL PROTEIN 7.2 g/dL (6.4-8.2)
--- NOTE | 2020-05-15 16:50 | MRI ---
HISTORYINTERMITTENT CONFUSION, UNSTEADY GAITSTUDYMRI brain without IV contrastCOMPARISONCT from same dayTECHNIQUEMultiplanar multi-sequence MRI of the brain was obtained without administration of IV contrast.FINDINGSMotion limits the study. The cerebellar tonsils are normally positioned. Pituitary gland is normal in size. [Prominent diffuse volume loss is seen in the brain with compensatory enlargement of the ventricular system.]No areas of restricted diffusion. 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 Moderate chronic small vessel ischemic changes are seen in the periventricular white matter, also. [No evidence of intracranial hemorrhage.]Paranasal sinuses appear clear but there is mild fluid in the left mastoid air cells.IMPRESSIONOld ischemic changes are seen with prominent diffuse volume loss in the brain. No evidence of recent CVA.Electronically signed by: Gurdeep Guo (May 15, 2020 16:48:24)
[2020-05-15] MEDS ORDERED: ROCEPHIN VIAL 1 GRAM 1 G in NS 100 ML IV + SPIKE MINIBAG* 100 ML IV ONE (17:16)
[2020-05-15] MEDS ORDERED: NS 1000 ML 1,000 ML ONE (17:34)
[2020-05-15] MEDS ORDERED: ROCEPHIN 1 GRAM IV PREMIX 1 G/50 ML IV.SOLN. IV ONE (17:34)
[2020-05-15] MEDS: NS 1000 ML 1,000 ML IV SCH (17:42)
[2020-05-15] MEDS: ROCEPHIN VIAL 1 GRAM 0.75 G in NS 50 ML IV 50 ML IV SCH (18:33)
[2020-05-15] MEDS ORDERED: COLACE CAP 100 MG PO PRN (20:43)
[2020-05-15] MEDS ORDERED: COLACE CAP 100 MG PO ONE (20:47)
[2020-05-15 20:49] LABS: CKMB % 2.9 % (<4); CREATINE KINASE 34 Units/L (39-308); CREATINE KINASE MB < 1.0 ng/mL (0-4.0); TROPONIN I < 0.02 ng/mL (0-1.5)
[2020-05-16 02:57] LABS: CKMB % 2.3 % (<4); CREATINE KINASE 44 Units/L (39-308); CREATINE KINASE MB < 1.0 ng/mL (0-4.0); TROPONIN I < 0.02 ng/mL (0-1.5)
[2020-05-16 04:15] VITALS: BP 110/61
[2020-05-16 05:26] LABS: BASOPHILS % (AUTO) 0.4 % (0.2-1.0); EOSINOPHILS % (AUTO) 0.7 % (0.9-2.9); HEMATOCRIT 34.8 % (42.0-54.0); HEMOGLOBIN 11.4 g/dL (13.5-18.0); LYMPHOCYTES # (AUTO) 1.3 X10^3/uL (1.3-2.9); LYMPHOCYTES % (AUTO) 24.6 % (21.0-51.0); MEAN CORPUSCULAR HEMOGLOBIN 26.6 pg (27.0-34.0); MEAN CORPUSCULAR HGB CONC 32.8 g/dL (33.0-35.0); MEAN CORPUSCULAR VOLUME 81.1 fL (80.0-100.0); MEAN PLATELET VOLUME 7.5 fL (7.4-11.0); MONOCYTES # (AUTO) 0.8 x10^3/uL (0.3-0.8); MONOCYTES % (AUTO) 15.8 % (0.0-13.0); NEUTROPHILS % (AUTO) 58.5 % (42.0-75.0); PLATELET COUNT 235 X10^3/uL (150.0-450.0); RED BLOOD COUNT 4.29 X10^6/uL (4.7-6.0); WHITE BLOOD COUNT 5.2 X10^3/uL (3.6-10.0)
[2020-05-16 05:27] LABS: ALANINE AMINOTRANSFERASE 6 Units/L (12-78); ALBUMIN 2.4 g/dL (3.4-5.0); ALKALINE PHOSPHATASE 55 Units/L (46-116); ASPARTATE AMINO TRANSFERASE 20 Units/L (15-37); BLOOD UREA NITROGEN 17 mg/dL (7-18); CALCIUM 9.7 mg/dL (8.5-10.1); CARBON DIOXIDE 29.1 mmol/L (21-32); CHLORIDE 101 mmol/L (98-107); CHOL/HDL RATIO 5.5 (0.0-5.0); CHOLESTEROL 127 mg/dL (0-200); CREATININE 1.35 mg/dL (0.70-1.30); HDL CHOLESTEROL 23 mg/dL (40-60); SODIUM 135 mmol/L (136-145); TOTAL PROTEIN 6.5 g/dL (6.4-8.2); TRIGLYCERIDES 83 mg/dL (0-150); eGFR NON BLACK RACES 53 (>60)
[2020-05-16] MEDS ORDERED: ASPIRIN 81 MG CHEWTAB PO SCH (08:00)
--- NOTE | 2020-05-16 08:08 | DR.SSS ---
SHORT STAY SUMMARY Admission Date Date of Admission: 05/15/20 Discharge Date Discharge Date: 05/16/20 Admission Diagnoses Admission Diagnoses: Generalized Weakness Confusion Cough Discharge Diagnoses Discharge Diagnoses: Generalized Weakness COPD Chief Complaint Chief Complaint: Weakness, Confusion Cough History of Present Illness History of Present Illness: Pt is a 89 y/o m [facility] by [facility] presenting with daughter who had concerns of him being weak with some confusion. She also noticed he had a dry cough and decreased appetite. Past Medical History Past Medical History: Angina, Arthritis and Hypertension Past Surgical History Surgical History: Unknown Allergies Allergies Allergy/AdvReac Type Severity Reaction Status Date / Time No Known Drug Allergies Allergy Verified 05/15/20 13:47 Medications Home Medications: No Known Drug Allergies Allergy (Verified 05/15/20 13:47) New Prescriptions mirtazapine 7.5 mg PO QHS 30 Days #30 tab 05/16/20 [Rx] prednisone 20 mg PO DAILY 5 Days #5 tab 05/16/20 [Rx] Social History Does patient currently use any type of tobacco product: No Have you used tobacco products in the last 12 months: No Type of Tobacco Use: None Does any household member use tobacco: No Alcohol Use: None Drug Use: None Review of Systems Constitutional: Weakness; denies Fever and Chills Eyes: No Symptoms Reported ENT: No Symptoms Reported Respiratory: Cough Cardiovascular: No Symptoms Reported Gastrointestinal: No Symptoms Reported Genitourinary: No Symptoms Reported Musculoskeletal: No Symptoms Reported Skin: No Symptoms Reported Neurological: Confusion Physical Exam Vital Signs: Last Vital Signs Temp 98.3 F 05/16/20 04:00 Pulse 68 05/16/20 04:00 Resp 20 05/16/20 04:00 BP 110/61 05/16/20 04:00 Pulse Ox 99 05/16/20 04:00 Oriented: Other Eyes: Normal Ear: Normal Nose: Normal Throat: Normal Respiratory: Diminished Throughout Cardiovascular: Normal : Normal Auscultation: Bowel Sounds: Normal Palpation: Normal Tenderness: Normal Skin: Normal Musculoskeletal: Normal Psychiatric: Normal Mood Description: Calm Speech Pattern: Clear Labs Labs: Laboratory Last Values WBC 5.2 X10^3/uL (3.6-10.0) 05/16/20 04:05 RBC 4.29 X10^6/uL (4.7-6.0) L 05/16/20 04:05 Hgb 11.4 g/dL (13.5-18.0) L 05/16/20 04:05 Hct 34.8 % (42.0-54.0) L 05/16/20 04:05 MCV 81.1 fL (80.0-100.0) 05/16/20 04:05 MCH 26.6 pg (27.0-34.0) L 05/16/20 04:05 MCHC 32.8 g/dL (33.0-35.0) L 05/16/20 04:05 RDW 16.0 % (11.6-16.5) 05/16/20 04:05 Plt Count 235 X10^3/uL (150.0-450.0) 05/16/20 04:05 MPV 7.5 fL (7.4-11.0) 05/16/20 04:05 Neut % (Auto) 58.5 % (42.0-75.0) 05/16/20 04:05 Lymph % (Auto) 24.6 % (21.0-51.0) 05/16/20 04:05 O[place]Brien % (Auto) 15.8 % (0.0-13.0) H 05/16/20 04:05 Eos % (Auto) 0.7 % (0.9-2.9) L 05/16/20 04:05 Baso % (Auto) 0.4 % (0.2-1.0) 05/16/20 04:05 Neut # (Auto) 3.0 x10^3/uL (2.2-4.8) 05/16/20 04:05 Lymph # (Auto) 1.3 X10^3/uL (1.3-2.9) 05/16/20 04:05 [place] # (Auto) 0.8 x10^3/uL (0.3-0.8) 05/16/20 04:05 Eos # (Auto) 0.0 x10^3/uL (0.0-0.2) 05/16/20 04:05 Baso # (Auto) 0.0 X10^3/uL (0.0-0.1) 05/16/20 04:05 Absolute Nucleated RBC 0.0 /100WBC 05/16/20 04:05 PT 14.9 SECONDS (11.8-14.3) 05/16/20 04:05 INR Target Range - 05/16/20 04:05 INR 1.20 (0.8-1.3) 05/16/20 04:05 APTT 42.0 SECONDS (22.9-36.5) H 05/16/20 04:05 PTT Comment - 05/16/20 04:05 Sodium 135 mmol/L (136-145) L 05/16/20 04:05 Corrected Sodium TNP 05/16/20 04:05 Potassium 4.0 mmol/L (3.5-5.1) 05/16/20 04:05 Chloride 101 mmol/L (98-107) 05/16/20 04:05 Carbon Dioxide 29.1 mmol/L (21-32) 05/16/20 04:05 BUN 17 mg/dL (7-18) 05/16/20 04:05 Creatinine 1.35 mg/dL (0.70-1.30) H 05/16/20 04:05 Est GFR (MDRD) Af Amer > 60 (>60) 05/16/20 04:05 Est GFR (MDRD) Non-Af 53 (>60) L 05/16/20 04:05 Glucose 95 mg/dL (65-99) 05/16/20 04:05 Calcium 9.7 mg/dL (8.5-10.1) 05/16/20 04:05 Corrected Calcium 11.0 mg/dL (8.5-10.1) H 05/16/20 04:05 Magnesium 2.0 mg/dL (1.7-2.9) 05/16/20 04:05 Total Bilirubin 0.30 mg/dL (0.2-1.0) 05/16/20 04:05 AST 20 Units/L (15-37) 05/16/20 04:05 ALT 6 Units/L (12-78) L 05/16/20 04:05 Alkaline Phosphatase 55 Units/L (46-116) 05/16/20 04:05 Creatine Kinase 44 Units/L (39-308) 05/16/20 02:13 CK-MB (CK-2) < 1.0 ng/mL (0-4.0) 05/16/20 02:13 CK/CKMB % Calc 2.3 % (<4) 05/16/20 02:13 Troponin I < 0.02 ng/mL (0-1.5) 05/16/20 02:13 Total Protein 6.5 g/dL (6.4-8.2) 05/16/20 04:05 Albumin 2.4 g/dL (3.4-5.0) L 05/16/20 04:05 Globulin 4.1 g/dL (2.5-4.5) 05/16/20 04:05 Albumin/Globulin Ratio 0.6 Ratio (1.1-2.1) L 05/16/20 04:05 Triglycerides 83 mg/dL (0-150) 05/16/20 04:05 Cholesterol 127 mg/dL (0-200) 05/16/20 04:05 LDL Cholesterol, Calc 87 mg/dL (0-100) 05/16/20 04:05 HDL Cholesterol 23 mg/dL (40-60) L 05/16/20 04:05 Cholesterol/HDL Ratio 5.5 (0.0-5.0) H 05/16/20 04:05 Specimen Type Clean catch urine 05/15/20 14:16 Urine Color Yellow (YELLOW) 05/15/20 14:16 Urine Appearance Slightly hazy (CLEAR) 05/15/20 14:16 Urine pH 6.5 (5.0 - 8.0) 05/15/20 14:16 Ur Specific [place] 1.015 (1.000-1.030) 05/15/20 14:16 Urine Protein 1+ (NEGATIVE) 05/15/20 14:16 Urine Glucose (UA) Negative (NEGATIVE) 05/15/20 14:16 Urine Ketones Negative (NEGATIVE) 05/15/20 14:16 Urine Occult Blood 1+ (NEGATIVE) 05/15/20 14:16 Urine Nitrite Negative (NEGATIVE) 05/15/20 14:16 Urine Bilirubin Negative (NEGATIVE) 05/15/20 14:16 Urine Urobilinogen 1+ (NORMAL) 05/15/20 14:16 Ur Leukocyte Esterase 1+ (NEGATIVE) 05/15/20 14:16 Urine RBC 3-5 /HPF (0-3) A 05/15/20 14:16 Urine WBC 0-2 /HPF (0-5) 05/15/20 14:16 Ur Squamous Epith Cells Rare /HPF (NEGATIVE) 05/15/20 14:16 Calcium Oxalate Crystal Few /HPF (NEGATIVE) 05/15/20 14:16 Amorphous Sediment 1+ /HPF (NEGATIVE) 05/15/20 14:16 Urine Bacteria 1+ /HPF (NEGATIVE) 05/15/20 14:16 Ur Culture Indicated? No/not indicated 05/15/20 14:16 SARS-CoV-2 (PCR) Negative (NEGATIVE) 05/15/20 16:26 Assessment/Plan (1) Generalized weakness: (2) COPD (chronic obstructive pulmonary disease): Hospital Course Hospital Course: Pt is a 89 y/[facility] with daughter who had concerns of him being weak with some confusion. She also noticed he had a dry cough and decreased appetite. Labs/imaging: Wbc 5.5, Hgb 12.9>11.4, Plt 261>235, Na 135, K 4, Cr 1.35, Glucose 95, Troponin negative x 3, CKMB<1, CK 45, UA not c/w infectoin. CT head: No acute intracranial abnormality. 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 Postsurgical change to the left temporal bone. MRI brain: Old ischemic changes are seen with prominent diffuse volume loss in the brain. No evidence of recent CVA. CXR: Probable COPD. Probable persistent atelectasis at the left lung base. Imaging did not show any acute changes, labs remained grossly wnl, and patient appeared to be at his baseline on exam. Cough likely d/t COPD. Pt did not have any fever or productive sputum, and did not require supplemental O2. Pt was discharged home in stable condition with prednisone 20mg x5 days for COPD, antibiotics not indicated. Prescription also provided for Remeron to help with appetite. Pt is instructed to follow up with pcp [facility] the [facility] in 1 week. Discharge Medications Discharge Medications: Home Medication List mirtazapine 7.5 mg PO QHS 30 Days #30 tab 05/16/20 [Rx] prednisone 20 mg PO DAILY 5 Days #5 tab 05/16/20 [Rx] Prescriptions: mirtazapine Del,Wm prednisone Del,Wm Discharge Disposition Discharge Disposition: Home
[2020-05-16 09:25] LABS: CKMB % 2.2 % (<4); CREATINE KINASE 45 Units/L (39-308); CREATINE KINASE MB < 1.0 ng/mL (0-4.0); TROPONIN I < 0.02 ng/mL (0-1.5)
[2020-05-16] MEDS: ROCEPHIN VIAL 1 GRAM 0.75 G in NS 50 ML IV 50 ML IV SCH (10:47)
[2020-05-16] MEDS: NS 1000 ML 1,000 ML IV SCH (10:48)
== END 2020-05-16 10:15 | disposition home or self-care (01) ==
LOC: MED/SURG 13:45 → ER 13:45 → MED/SURG 17:55
PROVIDERS: ADMIT Family Medicine; ATTEND Family Medicine
DX: R94.4 Abnormal results of kidney function studies; R26.0 Ataxic gait; R53.1 Weakness; Z20.828 Contact with and (suspected) exposure to other viral communicable diseases; R41.82 Altered mental status, unspecified; R63.0 Anorexia; R06.02 Shortness of breath; R79.1 Abnormal coagulation profile; R94.31 Abnormal electrocardiogram [ECG] [EKG]; J44.9 Chronic obstructive pulmonary disease, unspecified